=== PATIENT | female | born 1970 | race Caucasian/White ===

== ENCOUNTER 2021-07-22 10:01 | Outpatient (CLI) | payer OTHER | END 2021-07-22 10:02 | disposition home or self-care (01) | LOC: CSHMAMMO 10:01 | PROVIDERS: ATTEND Family Medicine | DX: Z12.31 Encounter for screening mammogram for malignant neoplasm of breast (principal) | CPT/HCPCS: 77063; 77067 ==

== ENCOUNTER 2022-08-18 14:44 | Outpatient (CLI) | payer BC | END 2022-08-18 14:45 | disposition home or self-care (01) | LOC: CSHMAMMO 14:44 | PROVIDERS: ATTEND Family Medicine | DX: Z12.31 Encounter for screening mammogram for malignant neoplasm of breast (principal) | CPT/HCPCS: 77063; 77067 ==

== ENCOUNTER 2023-08-18 13:16 | Outpatient (CLI) | payer BC | END 2023-08-18 13:17 | disposition home or self-care (01) | LOC: CSHMAMMO 13:16 | PROVIDERS: ATTEND Family Medicine | DX: Z12.31 Encounter for screening mammogram for malignant neoplasm of breast (principal) | CPT/HCPCS: 77063; 77067 ==

== ENCOUNTER 2025-08-23 19:31 | Emergency (ER) | payer BC ==
[2025-08-23] MEDS ORDERED: Dexamethasone 10 MG/ML VIAL ONE (22:10)
[2025-08-23] MEDS ORDERED: Ketorolac Tromethamine 30 MG (1 mL) VIAL ONE (22:11)
== END 2025-08-23 22:02 | disposition home or self-care (01) ==
LOC: CSHERS 19:31
DX: U07.1 COVID-19 (principal); I10 Essential (primary) hypertension
CPT/HCPCS: 71045; 87428; 96372; J1100; J1885; Q0162

== ENCOUNTER 2025-09-18 11:49 | Outpatient (CLI) | payer BC | END 2025-09-18 11:50 | disposition home or self-care (01) | LOC: CSHMAMMO 11:49 | PROVIDERS: ATTEND Family Medicine | DX: Z12.13 Encounter for screening for malignant neoplasm of small intestine (principal) | CPT/HCPCS: 77063; 77067 ==